=== PATIENT | male | born 1990 | race Caucasian/White ===

== ENCOUNTER 2020-06-29 18:14 | Emergency (ER) | payer OTHER ==
[~2020-06-29 18:14] MED LIST: FLEXERIL5 MG PO; FLOMAX 0.4 MG0.4 MG PO; HYDROCODON-ACE1 EAC4 PO; MEDROL 4MG DOSEP4 MG PO; NAPROXEN500 MG PO; PERCOCET 5-3251 EACH PO; ROBAXIN750 MG PO; ZOFRAN4 MG SL; ZOFRAN8 MG PO
[2020-06-29 19:28] LABS: BASOPHIL 0.4 % (0-2); EOSINOPHIL 1.3 % (0-5); HCT 46.8 % (42.0-52.0); HGB 15.4 g/dl (13.2-18.0); LYMPHOCYTE 12.4 % (15-48); MCH 29.6 pg (25.0-31.0); MCHC 32.9 g/dL (32.0-36.0); MCV 89.8 fL (78.0-100.0); MONOCYTE 5.8 % (0-12); MPV 9.5 fL (6.0-9.5); NEUTROPHIL 79.6 % (41-80); NRBC 0; PLT 349 K/uL (150-400); RBC 5.21 M/uL (4.70-6.00); RDW 13.5 % (11.5-14.0); WBC 19.2 K/uL (4.0-10.5)
[2020-06-29 19:35] LABS: BILIRUBIN NEGATIVE (NEGATIVE); BLOOD 3+ Ery/uL (NEGATIVE); CLARITY CLEAR (CLEAR); COLOR YELLOW (YELLOW); GLUCOSE (U) NORMAL (NORMAL); LEUKOCYTES TRACE Leu/uL (NEGATIVE); NITRITE NEGATIVE (NEGATIVE); PROTEIN NEGATIVE (NEGATIVE); UROBILINOGEN 0.2 mg/dL (0.2-1.0)
[2020-06-29 19:46] LABS: MUCOUS MODERATE; SQUAMOUS EPITHELIAL CELLS RARE; URINARY WBC RARE
[2020-06-29 20:12] LABS: ALBUMIN 3.6 g/dL (3.4-5.0); BILIRUBIN - TOTAL 0.3 mg/dL (0.2-1.0); BUN/CREAT RATIO (CALC) 11.8 RATIO; CREATININE 1.1 mg/dL (0.67-1.17); TOTAL PROTEIN 7.6 g/dL (6.4-8.2)
[2020-06-29] MEDS ORDERED: KEFLEX250 MG PO (21:29)
[2020-06-29] MEDS ORDERED: PERCOCET 5-3251 EACH PO (21:29)
[2020-06-29] MEDS ORDERED: ZOFRAN4 M1 PO (21:33)
== END 2020-06-29 21:41 | disposition home or self-care (01) ==
LOC: FER 18:14
PROVIDERS: Emergency Medicine
DX: N13.2 Hydronephrosis with renal and ureteral calculous obstruction (principal); D72.829 Elevated white blood cell count, unspecified; R19.7 Diarrhea, unspecified; J45.909 Unspecified asthma, uncomplicated; F17.210 Nicotine dependence, cigarettes, uncomplicated; Z87.442 Personal history of urinary calculi; Z90.49 Acquired absence of other specified parts of digestive tract
CPT/HCPCS: 36415; 80053; 81001; 83605; 83690; 85025; 87088; J0696; J1170; J1885; J2405

== ENCOUNTER 2020-07-03 00:26 | Emergency (ER) | payer OTHER ==
[~2020-07-03 00:26] MED LIST changes: +KEFLEX250 MG PO; +ZOFRAN4 M1 PO
[2020-07-03 00:48] LABS: BASOPHIL 0.4 % (0-2); EOSINOPHIL 1.9 % (0-5); HCT 44.5 % (42.0-52.0); HGB 14.6 g/dl (13.2-18.0); LYMPHOCYTE 26.8 % (15-48); MCH 29.6 pg (25.0-31.0); MCHC 32.8 g/dL (32.0-36.0); MCV 90.1 fL (78.0-100.0); MONOCYTE 6.6 % (0-12); MPV 9.4 fL (6.0-9.5); NEUTROPHIL 63.9 % (41-80); NRBC 0; PLT 342 K/uL (150-400); RBC 4.94 M/uL (4.70-6.00); RDW 13.2 % (11.5-14.0); WBC 15.1 K/uL (4.0-10.5)
[2020-07-03 00:55] LABS: BILIRUBIN NEGATIVE (NEGATIVE); BLOOD 3+ Ery/uL (NEGATIVE); CLARITY CLOUDY (CLEAR); COLOR RED (YELLOW); GLUCOSE (U) NORMAL (NORMAL); LEUKOCYTES 2+ Leu/uL (NEGATIVE); NITRITE NEGATIVE (NEGATIVE); PROTEIN 2+ mg/dL (NEGATIVE); UROBILINOGEN 0.2 mg/dL (0.2-1.0)
[2020-07-03 01:04] LABS: BUN/CREAT RATIO (CALC) 12.5 RATIO; CREATININE 1.12 mg/dL (0.67-1.17); POTASSIUM 4.4 mmol/L (3.5-5.1)
[2020-07-03 01:05] LABS: BACTERIA TRACE; SQUAMOUS EPITHELIAL CELLS RARE; URINARY RBC TNTC
== END 2020-07-03 01:40 | disposition home or self-care (01) ==
LOC: FER 00:26
PROVIDERS: Emergency Medicine
DX: N23 Unspecified renal colic (principal); J45.909 Unspecified asthma, uncomplicated; F17.210 Nicotine dependence, cigarettes, uncomplicated; Z98.890 Other specified postprocedural states; Z88.1 Allergy status to other antibiotic agents; Z88.5 Allergy status to narcotic agent; Z91.041 Radiographic dye allergy status; Z87.19 Personal history of other diseases of the digestive system
CPT/HCPCS: 36415; 74018; 80048; 81001; 85025; J0595; J1170; J1885; J2405

== ENCOUNTER 2020-07-04 21:45 | Emergency (ER) | payer OTHER ==
[2020-07-04 22:29] LABS: BILIRUBIN NEGATIVE (NEGATIVE); BLOOD 3+ Ery/uL (NEGATIVE); CLARITY HAZY (CLEAR); COLOR RED (YELLOW); GLUCOSE (U) NORMAL (NORMAL); LEUKOCYTES 2+ Leu/uL (NEGATIVE); NITRITE NEGATIVE (NEGATIVE); PROTEIN TRACE (LOW) mg/dL (NEGATIVE); UROBILINOGEN 0.2 mg/dL (0.2-1.0); pH 8.5 (5.0-9.0)
[2020-07-04 22:29] LABS: BASOPHIL 0.5 % (0-2); EOSINOPHIL 3.3 % (0-5); HGB 14.7 g/dl (13.2-18.0); LYMPHOCYTE 23.4 % (15-48); MCH 29.1 pg (25.0-31.0); MCHC 32.7 g/dL (32.0-36.0); MCV 88.9 fL (78.0-100.0); MONOCYTE 4.9 % (0-12); MPV 9.2 fL (6.0-9.5); NEUTROPHIL 67.8 % (41-80); NRBC 0; PLT 351 K/uL (150-400); RBC 5.06 M/uL (4.70-6.00); RDW 13.2 % (11.5-14.0); WBC 14.1 K/uL (4.0-10.5)
[2020-07-04 22:36] LABS: URINARY RBC TNTC
[2020-07-04 22:44] LABS: ALBUMIN 3.3 g/dL (3.4-5.0); BILIRUBIN - TOTAL 0.2 mg/dL (0.2-1.0); BUN/CREAT RATIO (CALC) 15.5 RATIO; CREATININE 1.1 mg/dL (0.67-1.17); GLOBULIN (CALCULATION) 4.2 g/dL; POTASSIUM 3.8 mmol/L (3.5-5.1); TOTAL PROTEIN 7.5 g/dL (6.4-8.2)
[2020-07-05] MEDS ORDERED: CEPHALEXIN500 M1 PO (03:39)
[2020-07-05] MEDS ORDERED: PERCOCET 10-321 EACH PO (03:39)
== END 2020-07-05 04:00 | disposition home or self-care (01) ==
LOC: FER 21:45
PROVIDERS: Student in an Organized Health Care Education/Training Program
DX: N39.0 Urinary tract infection, site not specified (principal); G89.18 Other acute postprocedural pain; F17.210 Nicotine dependence, cigarettes, uncomplicated; Z95.5 Presence of coronary angioplasty implant and graft; Z98.890 Other specified postprocedural states; Z87.442 Personal history of urinary calculi; Z88.5 Allergy status to narcotic agent; Z88.1 Allergy status to other antibiotic agents; Z91.041 Radiographic dye allergy status
CPT/HCPCS: 36415; 80053; 81001; 85025; J0696; J2405; J3010

== ENCOUNTER 2020-11-25 10:15 | Emergency (ER) | payer OTHER ==
[~2020-11-25 10:15] MED LIST changes: +CEPHALEXIN500 M1 PO; +PERCOCET 10-321 EACH PO
[2020-11-25 11:22] LABS: BILIRUBIN NEGATIVE (NEGATIVE); BLOOD TRACE-INTACT Ery/uL (NEGATIVE); CLARITY CLEAR (CLEAR); COLOR YELLOW (YELLOW); GLUCOSE (U) NORMAL (NORMAL); LEUKOCYTES NEGATIVE Leu/uL (NEGATIVE); NITRITE NEGATIVE (NEGATIVE); PROTEIN NEGATIVE (NEGATIVE); SPECIFIC GRAVITY 1.025 (1.001-1.030); UROBILINOGEN 0.2 mg/dL (0.2-1.0)
[2020-11-25 11:37] LABS: BASOPHIL 0.4 % (0-2); EOSINOPHIL 3.6 % (0-5); HCT 41.6 % (42.0-52.0); HGB 13.3 g/dl (13.2-18.0); LYMPHOCYTE 26.9 % (15-48); MCH 28.8 pg (25.0-31.0); MONOCYTE 7.2 % (0-12); MPV 9.4 fL (6.0-9.5); NEUTROPHIL 61.6 % (41-80); NRBC 0; PLT 324 K/uL (150-400); RBC 4.62 M/uL (4.70-6.00); RDW 13.5 % (11.5-14.0); WBC 10.3 K/uL (4.0-10.5)
[2020-11-25 11:39] LABS: CALCIUM OXALATE CRYSTALS TRACE; URINARY WBC RARE
[2020-11-25 11:42] LABS: ALBUMIN 3.2 g/dL (3.4-5.0); BILIRUBIN - TOTAL 0.2 mg/dL (0.2-1.0); GLOBULIN (CALCULATION) 4.1 g/dL; POTASSIUM 3.8 mmol/L (3.5-5.1); TOTAL PROTEIN 7.3 g/dL (6.4-8.2)
[2020-11-25] MEDS ORDERED: NORCO 5-325 TA1 EACH PO (13:22)
[2020-11-25] MEDS ORDERED: ZOFRAN4 M1 PO (13:23)
== END 2020-11-25 13:52 | disposition home or self-care (01) ==
LOC: FER 10:15
PROVIDERS: Emergency Medicine
DX: N20.0 Calculus of kidney (principal); Z90.49 Acquired absence of other specified parts of digestive tract; Z88.5 Allergy status to narcotic agent; Z88.1 Allergy status to other antibiotic agents; Z91.041 Radiographic dye allergy status
CPT/HCPCS: 36415; 80053; 81001; 82150; 83690; 85025; J1170; J1885; J2405; J7030

== ENCOUNTER 2021-01-11 14:48 | Emergency (ER) | payer OTHER ==
[~2021-01-11 14:48] MED LIST changes: +NORCO 5-325 TA1 EACH PO
[2021-01-11 15:49] LABS: BASOPHIL 0.4 % (0-2); BILIRUBIN NEGATIVE (NEGATIVE); BLOOD NEGATIVE Ery/uL (NEGATIVE); CLARITY CLEAR (CLEAR); COLOR YELLOW (YELLOW); EOSINOPHIL 2.6 % (0-5); GLUCOSE (U) NORMAL (NORMAL); HCT 42.5 % (42.0-52.0); HGB 13.8 g/dl (13.2-18.0); LEUKOCYTES NEGATIVE Leu/uL (NEGATIVE); LYMPHOCYTE 32.9 % (15-48); MCH 28.5 pg (25.0-31.0); MCHC 32.5 g/dL (32.0-36.0); MCV 87.6 fL (78.0-100.0); MONOCYTE 7.1 % (0-12); NEUTROPHIL 56.8 % (41-80); NITRITE NEGATIVE (NEGATIVE); NRBC 0; PLT 361 K/uL (150-400); PROTEIN NEGATIVE (NEGATIVE); RBC 4.85 M/uL (4.70-6.00); RDW 12.4 % (11.5-14.0); WBC 9.2 K/uL (4.0-10.5)
[2021-01-11 16:02] LABS: ALBUMIN 3.5 g/dL (3.4-5.0); BILIRUBIN - TOTAL 0.3 mg/dL (0.2-1.0); BUN/CREAT RATIO (CALC) 10.5 RATIO; CREATININE 1.05 mg/dL (0.67-1.17); GLOBULIN (CALCULATION) 4.4 g/dL; POTASSIUM 3.7 mmol/L (3.5-5.1); TOTAL PROTEIN 7.9 g/dL (6.4-8.2)
[2021-01-11] MEDS ORDERED: ONDANSETRON ODT4 MG PO (16:34)
[2021-01-11] MEDS ORDERED: CITRATE OF MAG296 ML PO (16:34)
== END 2021-01-11 16:50 | disposition home or self-care (01) ==
LOC: FER 14:48
PROVIDERS: Emergency Medicine
DX: K59.00 Constipation, unspecified (principal); Z88.1 Allergy status to other antibiotic agents; Z88.6 Allergy status to analgesic agent; Z88.5 Allergy status to narcotic agent; Z91.041 Radiographic dye allergy status
CPT/HCPCS: 36415; 74022; 80053; 81003; 85025; J2405

== ENCOUNTER 2021-05-03 22:18 | Emergency (ER) | payer OTHER ==
[~2021-05-03 22:18] MED LIST changes: +CITRATE OF MAG296 ML PO; +ONDANSETRON ODT4 MG PO
[2021-05-03 22:57] LABS: BILIRUBIN NEGATIVE (NEGATIVE); BLOOD 3+ Ery/uL (NEGATIVE); CLARITY CLEAR (CLEAR); COLOR YELLOW (YELLOW); GLUCOSE (U) NORMAL (NORMAL); LEUKOCYTES 2+ Leu/uL (NEGATIVE); NITRITE NEGATIVE (NEGATIVE); PROTEIN 1+ mg/dL (NEGATIVE); SPECIFIC GRAVITY >=1.030 (1.001-1.030); UROBILINOGEN 0.2 mg/dL (0.2-1.0)
[2021-05-03 23:01] LABS: URINARY RBC TNTC; URINARY WBC RARE
[2021-05-03 23:43] LABS: BASOPHIL 0.3 % (0-2); EOSINOPHIL 2.9 % (0-5); HCT 41.9 % (42.0-52.0); HGB 13.5 g/dl (13.2-18.0); LYMPHOCYTE 25.8 % (15-48); MCH 27.4 pg (25.0-31.0); MCHC 32.2 g/dL (32.0-36.0); MCV 85.2 fL (78.0-100.0); MONOCYTE 6.8 % (0-12); NRBC 0; PLT 358 K/uL (150-400); RBC 4.92 M/uL (4.70-6.00); RDW 13.2 % (11.5-14.0); WBC 9.5 K/uL (4.0-10.5)
[2021-05-04 00:03] LABS: ALBUMIN 3.4 g/dL (3.4-5.0); BILIRUBIN - TOTAL 0.3 mg/dL (0.2-1.0); BUN/CREAT RATIO (CALC) 10.2 RATIO; CREATININE 0.98 mg/dL (0.67-1.17); GLOBULIN (CALCULATION) 4.2 g/dL; POTASSIUM 4.1 mmol/L (3.5-5.1); TOTAL PROTEIN 7.6 g/dL (6.4-8.2)
[2021-05-04] MEDS ORDERED: ONDANSETRON ODT4 MG PO (01:23)
[2021-05-04] MEDS ORDERED: PERCOCET 5-3251 EACH PO (01:23)
== END 2021-05-04 01:53 | disposition home or self-care (01) ==
LOC: FER 22:18
PROVIDERS: Emergency Medicine
DX: N20.0 Calculus of kidney (principal); J45.909 Unspecified asthma, uncomplicated; F17.290 Nicotine dependence, other tobacco product, uncomplicated; Z96.0 Presence of urogenital implants; Z88.1 Allergy status to other antibiotic agents; Z88.5 Allergy status to narcotic agent; Z91.041 Radiographic dye allergy status
CPT/HCPCS: 36415; 80053; 81001; 85025; 96372; J1170